=== PATIENT | male | born 1980 | race Caucasian/White ===

== ENCOUNTER 2019-08-28 08:44 | Emergency (ER) | payer OTHER, MEDICAID ==
[~2019-08-28] VITALS: Ht 182.9 cm; Wt 90.7 kg
[2019-08-28 08:45] VITALS: BP_SYST 128
--- NOTE | 2019-08-28 08:45 | NUR ---
BROUGHT IN BY OFFICER MURPHY AT [facility] FOR ANXIETY, PANIC ATTACK. PT PLACED IN BED #2 AND TRIAGED. REPORT GIVEN TO
--- NOTE | 2019-08-28 08:45 | NUR ---
Pt bib [place] [employer] with c/o anxiety attack. V/S stable, pt is afebrile. Currently resting in bed, will continue to monitor.
--- NOTE | 2019-08-28 08:50 | NUR ---
ER Dr. Nicolas at bedside examining patient.
--- NOTE | 2019-08-28 09:30 | NUR ---
Patient given written and verbal discharge instructions and verbalizes understanding. ER MD discussed with patient the results and treatment provided. Patient in stable condition. ID arm band removed. No prescriptions given. Patient educated on pain management and to follow up with PMD. Pain Scale 0. Opportunity for questions provided and answered. Medication side effect fact sheet provided.
[2019-08-28 09:41] VITALS: BP_SYST 128
== END 2019-08-28 09:30 ==
LOC: SED 08:44
DX: F41.9 Anxiety disorder, unspecified (principal); R06.4 Hyperventilation
CPT/HCPCS: 99283